=== PATIENT | female | born 1990 ===

== ENCOUNTER → 2019-06-10 | Outpatient (CLI) | payer OTHER | END | disposition home or self-care (01) | LOC: PRENATAL 08:59 | DX: O99.89 Other specified diseases and conditions complicating pregnancy, childbirth and the puerperium (principal) ==

== ENCOUNTER 2019-11-02 06:25 | Inpatient (IN) | payer OTHER ==
[~2019-11-02] VITALS: Ht 154.9 cm; Wt 73.9 kg
[2019-11-02] MEDS ORDERED: PRENATAL CAPLE1 EAC1 PO (09:04)
[2019-11-02] MEDS ORDERED: FOLIC ACID20 MG (09:04)
== END 2019-11-05 17:42 | disposition home or self-care (01) | DRG 788 ==
LOC: LDR 06:25 → OB/GYN 06:25 → LDR 08:50 → OB/GYN 23:20
PROVIDERS: ADMIT Obstetrics & Gynecology
PROC: 3E033VJ Introduction of Other Hormone into Peripheral Vein, Percutaneous Approach (ICD-10-PCS; 2019-11-02)
PROC: 4A1HXCZ Monitoring of Products of Conception, Cardiac Rate, External Approach (ICD-10-PCS; 2019-11-02)
PROC: 10D00Z1 Extraction of Products of Conception, Low, Open Approach (ICD-10-PCS; principal; 2019-11-02 21:15)
DX: O82 Encounter for cesarean delivery without indication (principal); O61.0 Failed medical induction of labor; Z3A.39 39 weeks gestation of pregnancy; Z37.0 Single live birth

== ENCOUNTER 2021-02-15 19:18 | Inpatient (IN) | payer OTHER ==
[~2021-02-15] VITALS: Ht 154.9 cm; Wt 72.6 kg
[~2021-02-15 19:18] MED LIST: FOLIC ACID20 MG; PRENATAL CAPLE1 EAC1 PO
--- NOTE | 2021-02-15 20:13 | NUR ---
PTE EMBARAZADA DE 18 WEEK SE RECIBE POR PELVIC PAIN REFIERE PTE.
--- NOTE | 2021-02-15 20:38 | NUR ---
SE NOTIFICA ESTUDIO DE SONOGRAFIA PENDIENTE A REALIZAR.
--- NOTE | 2021-02-15 21:09 | NUR ---
PTE FEMENINA ALERTA Y ORIENTADA EN [place] ESFERAS ES EVALUADA POR . SE ORIENTA PTE SOBRE ORDENES DE TX REFIERE COMPRENDER. SE EXTRAEN MUESTRAS DE LABORATROIO, BAJO MEDIDAS ASEPTICAS. SE ADMINSITRA MEDICAMENTO, BAJO MEDIDAS ASEPTICAS.
--- NOTE | 2021-02-15 23:49 | NUR ---
SE LLEVAN PTE A TRISTIN DE PARTO EN SILLON DE FARZANA CON ESCOLTA.
--- NOTE | 2021-02-15 23:50 | NUR ---
PTE SUBE SIN DOCUMENTOS DE ADMISION.
== END 2021-02-17 11:05 | disposition home or self-care (01) | DRG 805 ==
LOC: ER 19:18 → LDR 23:05 → SEC-K 23:05 → LDR 02-16 01:00 → SURG-SUITE 02-16 14:07
PROVIDERS: ADMIT Obstetrics & Gynecology; ATTEND Obstetrics & Gynecology
PROC: 10E0XZZ Delivery of Products of Conception, External Approach (ICD-10-PCS; principal; 2021-02-15)
PROC: 4A1HXFZ Monitoring of Products of Conception, Cardiac Rhythm, External Approach (ICD-10-PCS; 2021-02-15)
DX: O02.1 Missed abortion (principal); O60.12X0 Preterm labor second trimester with preterm delivery second trimester, not applicable or unspecified; Z37.1 Single stillbirth; Z3A.19 19 weeks gestation of pregnancy

== ENCOUNTER 2022-02-03 18:34 | Emergency (ER) | payer OTHER ==
[~2022-02-03] VITALS: Ht 154.9 cm; Wt 73.5 kg
== END 2022-02-03 21:00 | disposition home or self-care (01) ==
LOC: ER 18:34
DX: O34.31 Maternal care for cervical incompetence, first trimester (principal); Z3A.01 Less than 8 weeks gestation of pregnancy; Z88.0 Allergy status to penicillin